=== PATIENT | male | born 1960 | race Caucasian/White ===

== ENCOUNTER → 2016-06-26 | Outpatient (CLI) | payer MEDICARE ==
[~2016-06-26] MED LIST: ARICEPT10 MG PO; ASPIRIN81 MG PO; BYSTOLIC10 MG PO; CARDURA 2MG TAB2 MG PO; CATAPRES 0.1MG0.1 MG PO; CRESTOR10 MG PO; DEPAKOTE500 MG PO; GLUCOTROL5 MG PO; HYZAAR 100-251 EACH PO; LASIX20 MG PO; LEVAQUIN750 MG PO; LITHIUM CARBON300 M1 PO; LORTAB 7.5-3251 EACH PO; LOSARTAN POTAS100 MG PO; NEURONTIN 300300 MG PO; OLEPTRO ER150 MG PO; RESTORIL 15 MG15 MG PO; SEROQUEL TAB 2525 MG PO; TRICOR48 MG PO; ULORIC 40 MG TA40 MG PO; ZETIA 10 MG TAB10 MG PO
== END ==
DX: I49.5 Sick sinus syndrome (principal)
CPT/HCPCS: 36415; 84439; 84443; 84481

== ENCOUNTER → 2016-06-26 | Outpatient (CLI) | payer MEDICARE | DX: R00.1 Bradycardia, unspecified (principal); I49.5 Sick sinus syndrome ==

== ENCOUNTER → 2016-07-31 | Outpatient (CLI) | payer MEDICARE | LOC: KOH-I 14:34 | DX: J44.9 Chronic obstructive pulmonary disease, unspecified (principal) | CPT/HCPCS: 71020 ==

== ENCOUNTER → 2016-09-21 | Outpatient (CLI) | payer MEDICARE | LOC: EMI 08:00 | DX: M48.06 Spinal stenosis, lumbar region (principal); M51.26 Other intervertebral disc displacement, lumbar region; M51.36 Other intervertebral disc degeneration, lumbar region | CPT/HCPCS: 72148 ==

== ENCOUNTER → 2020-04-27 | Outpatient (CLI) | payer MEDICARE ==
[~2020-04-27] MED LIST changes: +AMLODIPINE BESY10 MG PO; +BREO ELLIPTA 21 EACH INH; +BYDUREON BCISE SC; +CENTRUM COMPLE1 EACH PO; +CLONAZEPAM1 MG PO; +COREG 12.5MG12.5 MG PO; +DEPAKOTE 250 M250 MG PO; -DEPAKOTE500 MG PO; +DOXAZOSIN MESYLA4 MG PO; +FISH OIL 1,0001 EACH PO; +FLONASE 0.05% N16 GM; +GABAPENTIN600 MG PO; +GLIPIZIDE ER5 MG PO; +HYDRALAZINE HC100 MG PO; +HYDRALAZINE HCL50 MG PO; +HYDROCHLOROTHIA25 MG PO; +HYDROCODON-ACE1 EAC2 PO; +KLONOPIN1 MG PO; -LASIX20 MG PO; +LASIX40 MG PO; +LEVOFLOXACIN750 MG PO; +LITHIUM CARBON150 MG PO; -LITHIUM CARBON300 M1 PO; -LORTAB 7.5-3251 EACH PO; -NEURONTIN 300300 MG PO; +PREVACID30 MG PO; +QUETIAPINE FUM300 MG PO; +VENTOLIN HFA 66.7 GM INH; +VITAMIN D21250 MCG PO
== END ==
LOC: LAB 13:41
PROVIDERS: Internal Medicine Cardiovascular Disease
DX: I12.9 Hypertensive chronic kidney disease with stage 1 through stage 4 chronic kidney disease, or unspecified chronic kidney disease (principal); N18.9 Chronic kidney disease, unspecified
CPT/HCPCS: 36415; 80048

== ENCOUNTER → 2020-08-28 | Outpatient (CLI) | payer MEDICARE | LOC: RAD 18:53 | DX: L03.114 Cellulitis of left upper limb (principal); M25.422 Effusion, left elbow; M25.722 Osteophyte, left elbow | CPT/HCPCS: 73080 ==

== ENCOUNTER 2020-09-13 13:38 | Inpatient (IN) | payer MEDICARE ==
[~2020-09-13] VITALS: Ht 172.7 cm; Wt 95.5 kg
[~2020-09-13 13:38] MED LIST changes: -AMLODIPINE BESY10 MG PO; -BREO ELLIPTA 21 EACH INH; -CENTRUM COMPLE1 EACH PO; -CLONAZEPAM1 MG PO; -DEPAKOTE 250 M250 MG PO; -DOXAZOSIN MESYLA4 MG PO; -FISH OIL 1,0001 EACH PO; -FLONASE 0.05% N16 GM; -GABAPENTIN600 MG PO; -GLIPIZIDE ER5 MG PO; -HYDRALAZINE HC100 MG PO; -HYDROCODON-ACE1 EAC2 PO; -LEVOFLOXACIN750 MG PO; -LITHIUM CARBON150 MG PO; -PREVACID30 MG PO; -QUETIAPINE FUM300 MG PO; -VENTOLIN HFA 66.7 GM INH
[2020-09-13 14:14] LABS: HEMOGLOBIN 16.3 gm/dl (14.0-17.5); RED BLOOD COUNT 4.98 M/UL (4.20-5.50); WHITE BLOOD COUNT 10.1 K/UL (4.5-11.0)
[2020-09-13] MEDS ORDERED: DEPAKOTE 250 M250 MG PO (15:55)
[2020-09-13] MEDS ORDERED: GABAPENTIN600 MG PO (15:57)
[2020-09-13] MEDS ORDERED: LITHIUM CARBON150 MG PO (15:58)
[2020-09-13] MEDS ORDERED: HYDROCODON-ACE1 EAC2 PO (15:58)
[2020-09-13] MEDS ORDERED: QUETIAPINE FUM300 MG PO (16:00)
[2020-09-13] MEDS ORDERED: PREVACID30 MG PO (16:40)
[2020-09-13] MEDS ORDERED: GLIPIZIDE ER5 MG PO (17:14)
[2020-09-13] MEDS ORDERED: DOXAZOSIN MESYLA4 MG PO (17:15)
[2020-09-13] MEDS ORDERED: CLONAZEPAM1 MG PO (17:15)
[2020-09-13] MEDS ORDERED: AMLODIPINE BESY10 MG PO (17:28)
[2020-09-13] MEDS ORDERED: BREO ELLIPTA 21 EACH INH (17:29)
[2020-09-13] MEDS ORDERED: HYDRALAZINE HC100 MG PO (17:33)
--- NOTE | 2020-09-13 18:16 | NUR ---
PT ARRIVED TO PCU AT 1753, AT BEDSIDE, VSS AT THIS TIME, PERIODS OF BRADYCARIA, CARDIOLOGY CONSULT TO DR HARPER DONE, PT ON 3L NC, 2 PERIPHERAL IV'S NOTED, WILL CONTINUE TO MONITOR
--- NOTE | 2020-09-13 18:48 | NUR ---
DR HARPER MADE AWARE OF PT'S HEARTRATE DIPPING INTO THE 30'S
[2020-09-13] MEDS ORDERED: FLONASE 0.05% N16 GM (19:39)
[2020-09-13] MEDS ORDERED: CENTRUM COMPLE1 EACH PO (19:53)
[2020-09-13] MEDS ORDERED: FISH OIL 1,0001 EACH PO (19:53)
[2020-09-13] MEDS ORDERED: VENTOLIN HFA 66.7 GM INH (19:54)
[2020-09-14 02:47] LABS: HEMOGLOBIN 14.4 gm/dl (14.0-17.5); RED BLOOD COUNT 4.5 M/UL (4.20-5.50); WHITE BLOOD COUNT 12.4 K/UL (4.5-11.0)
--- NOTE | 2020-09-14 14:00 | NUR ---
NO CHANGE FROM PREVIOUS ASSESSMENT
[2020-09-15 02:30] LABS: HEMOGLOBIN 14.7 gm/dl (14.0-17.5); RED BLOOD COUNT 4.52 M/UL (4.20-5.50); WHITE BLOOD COUNT 10.1 K/UL (4.5-11.0)
[2020-09-16 02:20] LABS: HEMOGLOBIN 14.4 gm/dl (14.0-17.5); RED BLOOD COUNT 4.53 M/UL (4.20-5.50); WHITE BLOOD COUNT 8.2 K/UL (4.5-11.0)
[2020-09-16 02:43] LABS: BUN/CREATININE RATIO 13 (0-10)
[2020-09-16] MEDS ORDERED: LEVOFLOXACIN750 MG PO (09:20)
== END 2020-09-16 12:22 | disposition home or self-care (01) | DRG 177 ==
LOC: ER1 13:38 → CDU 16:07 → PROG CARE 17:57
PROVIDERS: Internal Medicine; Physician Assistant Medical; ADMIT Internal Medicine
PROC: 5A09457 Assistance with Respiratory Ventilation, 24-96 Consecutive Hours, Continuous Positive Airway Pressure (ICD-10-PCS; principal; 2020-09-14)
DX: J69.0 Pneumonitis due to inhalation of food and vomit (principal); J96.21 Acute and chronic respiratory failure with hypoxia; G92 Toxic encephalopathy; J44.0 Chronic obstructive pulmonary disease with (acute) lower respiratory infection; F11.20 Opioid dependence, uncomplicated; N17.9 Acute kidney failure, unspecified; Z20.822 Contact with and (suspected) exposure to COVID-19; I12.9 Hypertensive chronic kidney disease with stage 1 through stage 4 chronic kidney disease, or unspecified chronic kidney disease; N18.30 Chronic kidney disease, stage 3 unspecified; E11.22 Type 2 diabetes mellitus with diabetic chronic kidney disease; M10.9 Gout, unspecified; I45.10 Unspecified right bundle-branch block; R25.1 Tremor, unspecified; F17.210 Nicotine dependence, cigarettes, uncomplicated; I25.10 Atherosclerotic heart disease of native coronary artery without angina pectoris; F31.9 Bipolar disorder, unspecified; E78.5 Hyperlipidemia, unspecified; I49.5 Sick sinus syndrome; G89.4 Chronic pain syndrome; E11.42 Type 2 diabetes mellitus with diabetic polyneuropathy; G47.36 Sleep related hypoventilation in conditions classified elsewhere; G47.33 Obstructive sleep apnea (adult) (pediatric); Z88.1 Allergy status to other antibiotic agents; Z79.82 Long term (current) use of aspirin; Z79.899 Other long term (current) drug therapy; Z86.73 Personal history of transient ischemic attack (TIA), and cerebral infarction without residual deficits; Z88.0 Allergy status to penicillin; Z82.49 Family history of ischemic heart disease and other diseases of the circulatory system; Z90.49 Acquired absence of other specified parts of digestive tract; Z79.4 Long term (current) use of insulin; Z98.890 Other specified postprocedural states; Z82.3 Family history of stroke; Z95.0 Presence of cardiac pacemaker
CPT/HCPCS: 36415; 36600; 70450; 70551; 71045; 80048; 80053; 80178; 82140; 82803; 82962; 83735; 84439; 84443; 84484; 85025; 85027; 85610; 85730; 87040; 93005; 94640; 94660; 94664; 94760; 96374; 97161; 99285; G0480; J0461; J1650; J1956; J2405; J2543; U0002

== ENCOUNTER → 2020-11-02 | Outpatient (CLI) | payer MEDICARE ==
[~2020-11-02] MED LIST changes: +AMLODIPINE BESY10 MG PO; +BREO ELLIPTA 21 EACH INH; +CENTRUM COMPLE1 EACH PO; +CLONAZEPAM1 MG PO; +DEPAKOTE 250 M250 MG PO; +DOXAZOSIN MESYLA4 MG PO; +FISH OIL 1,0001 EACH PO; +FLONASE 0.05% N16 GM; +GABAPENTIN600 MG PO; +GLIPIZIDE ER5 MG PO; +HYDRALAZINE HC100 MG PO; +HYDROCODON-ACE1 EAC2 PO; +LEVOFLOXACIN750 MG PO; +LITHIUM CARBON150 MG PO; +PREVACID30 MG PO; +QUETIAPINE FUM300 MG PO; +VENTOLIN HFA 66.7 GM INH
== END ==
LOC: HEART 5 08:48
DX: R06.02 Shortness of breath (principal); R06.9 Unspecified abnormalities of breathing; M25.562 Pain in left knee; I08.3 Combined rheumatic disorders of mitral, aortic and tricuspid valves
CPT/HCPCS: 73564; 93306

== ENCOUNTER → 2020-11-20 | Outpatient (CLI) | payer MEDICARE | LOC: KOH-I 16:00 | DX: S83.242A Other tear of medial meniscus, current injury, left knee, initial encounter (principal); S83.512A Sprain of anterior cruciate ligament of left knee, initial encounter | CPT/HCPCS: 73721 ==

== ENCOUNTER → 2021-02-14 | Outpatient (CLI) | payer MEDICARE | LOC: KOH-I 13:48 | DX: F17.210 Nicotine dependence, cigarettes, uncomplicated (principal) | CPT/HCPCS: 71271 ==

== ENCOUNTER → 2021-05-02 | Outpatient (CLI) | payer MEDICARE | LOC: KOH-I 12:48 | DX: M25.451 Effusion, right hip (principal); M54.50 Low back pain, unspecified; M47.816 Spondylosis without myelopathy or radiculopathy, lumbar region | CPT/HCPCS: 72100; 73502 ==

== ENCOUNTER → 2021-10-17 | Outpatient (CLI) | payer MEDICARE | LOC: EXRD 11:26 | DX: N18.32 Chronic kidney disease, stage 3b (principal) | CPT/HCPCS: 76775 ==

== ENCOUNTER → 2022-01-03 | Outpatient (CLI) | payer MEDICARE | LOC: KOH-I 12:30 | DX: J18.9 Pneumonia, unspecified organism (principal) | CPT/HCPCS: 71046 ==